=== PATIENT | female | born 1960 | race Caucasian/White ===

== ENCOUNTER 2018-09-25 13:24 | Emergency (ER) | payer OTHER ==
--- NOTE | 2018-09-25 13:36 | EDPHY ---
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 Patient reports that she hit her head approximately 2 times. Denies LOC/head injury/neck pain/dizziness/nausea/ vomiting/amnesia. She also fell on her side, arm, leg and twisted her ankle. She felt like she had maybe malaligned her lower back but went to the chiropractor yesterday and was adjusted and felt better. Patient reports that she feels like she does not have the same mental acuity, describes mental fogginess, delayed in cognition and responses. No prior history of concussions. Patient also complains of some neck pain but denies radiation. Not on blood thinners. Modifying Factors: None Comment: ROS: A comprehensive 10 system review of systems is otherwise negative aside from elements mentioned in the history of present illness. MEDICAL/SURGICAL/SOCIAL HISTORY: Medical history: hypothyroidism, cervical CA with hysterectomy (2008) Surgical history: Denies Social history: Heavy smoker. Employed. CONSTITUTIONAL: Well-developed, well-nourished, middle-aged white female, awake and alert, no obvious distress HEENT: Atraumatic and normocephalic, PERRL, EOMI. no globe entrapment, no raccoon eyes. no Doran signs.Tympanic membranes clear. No tympanic membrane rupture. Nares patent; no septal hematoma. Oropharynx clear, no exudate and moist pink mucosa. No malocclusion. no dental trauma. Airway patent. No lymphadenopathy. NECK: supple, mild midline tenderness, flexion 45 degrees, extension 45 degrees , right and left lateral flexion 45 degrees. No meningismus. Cardiovascular: Normal S1/S2, regular rate, regular rhythm, without murmur rub or gallop. PULMONARY/CHEST: Symmetrical and nontender. no crepitus. Clear to auscultation bilaterally. Good air movement. No accessory muscle usage. ABDOMEN: Soft, nondistended, nontender, no ecchymosis, no rebound, no guarding , no peritoneal signs, no masses or organomegaly. No CVAT. PELVIC: no pain with rocking; bilateral hips flexion 125 degrees, extension 30 degrees, with no pain internal rotation and no pain external rotation. BACK: No midline tenderness, no paraspinous spasm, deep tendon reflexes 2/2, no pain with straight leg raise EXTREMITIES: 2/2 pulses, no deformities, no clubbing, no cyanosis or edema. NEUROLOGICAL: no focal neuro deficits. GCS 15. Cranial nerves 2-12 grossly intact. Long and short-term memory within normal limits. Normal Romberg testing. No balance deficits noted. SKIN: Warm and dry, no erythema. no rash. Good capillary refill. Source: Patient Exam Limitations: No limitations - Personal History Current Tetanus Diphtheria and Acellular Pertussis (TDAP): Yes - Medical/Surgical History Hx Asthma: No Hx Chronic Respiratory Disease: No Hx Diabetes: No Hx Cardiac Disease: No Hx Renal Disease: No Hx Cirrhosis: No Hx Alcoholism: No Hx HIV/AIDS: No Hx Splenectomy or Spleen Trauma: No Other PMH: hypothyroid, cervical CA with hysterectomy (2008) - Social History Smoking Status: Heavy smoker Constitutional: Initial Vital Signs Temperature (C) 36.7 C 09/25/18 13:28 Heart Rate 62 09/25/18 13:28 Respiratory Rate 18 09/25/18 13:28 Blood Pressure 123/81 H 09/25/18 13:28 O2 Sat (%) 93 09/25/18 13:28 O2 Delivery Mode Room Air Allergies/Adverse Reactions: Sulfa (Sulfonamide Antibiotics) Allergy (Verified 09/25/18 13:27) Home Medications: Medication Instructions Recorded Levothyroxine 09/25/18 Ondansetron Odt [Zofran Odt 4 mg 4 mg PO Q4 PRN #12 tab 09/25/18 (*)] Medical Decision Making - Diagnostics Imaging Results: Imaging Impressions Cervical Spine CT 09/25/18 13:43 Impression: Negative noncontrast CT of the head with no intracranial posttraumatic sequela identified. CT Cervical Spine Without Contrast History: Trauma. Technique: Multislice helical CT through the cervical spine without contrast from the skull base to T1. Soft tissue and bone evaluation is performed. Sagittal and coronal reconstructions are obtained and reviewed. Dose reduction techniques were utilized. Findings: There is reversal of the normal cervical curvature, otherwise, bone alignment is normal. No fracture or dislocation is identified. The relationship between skull base and C1 is normal. Degenerative changes are seen involving the C1-C2 articulation anteriorly.. The odontoid process is normal. . The cervical thoracic junction is normal. Soft tissue window evaluation does not show evidence of epidural or prevertebral hematoma. Disk space loss and degenerative changes extend from C3-C4 to the C6-C7 level. Impression: 1. Negative for fracture. 2. Reversal of the cervical curvature may reflect muscle spasm. 3. Degenerative changes are noted. Results called and discussed with Georgiana ABBASI on 09/25/2018 at 15:18. Head CT 09/25/18 13:43 Impression: Negative noncontrast CT of the head with no intracranial posttraumatic sequela identified. CT Cervical Spine Without Contrast History: Trauma. Technique: Multislice helical CT through the cervical spine without contrast from the skull base to T1. Soft tissue and bone evaluation is performed. Sagittal and coronal reconstructions are obtained and reviewed. Dose reduction techniques were utilized. Findings: There is reversal of the normal cervical curvature, otherwise, bone alignment is normal. No fracture or dislocation is identified. The relationship between skull base and C1 is normal. Degenerative changes are seen involving the C1-C2 articulation anteriorly.. The odontoid process is normal. . The cervical thoracic junction is normal. Soft tissue window evaluation does not show evidence of epidural or prevertebral hematoma. Disk space loss and degenerative changes extend from C3-C4 to the C6-C7 level. Impression: 1. Negative for fracture. 2. Reversal of the cervical curvature may reflect muscle spasm. 3. Degenerative changes are noted. Results called and discussed with Georgiana ABBASI on 09/25/2018 at 15:18. ED Course/Re-evaluation: Vital signs reviewed and stable upon arrival. Based on [facility] protocol and [place] protocol; with dangerous mechanism with multiple times hitting her head; will obtain head CT imaging Based on [facility] protocol of midline tenderness; cervical CT imaging ordered Called by Radiologist, Dr. Del Drummond, who advised that head CT scan shows no acute intracranial process. Cervical CT spine shows degenerative changes but no yariel disc herniation, cord impingement. Does show straightening of the lordosis consistent with muscle spasm. Discuss concussion precautions and given Zofran. Patient politely declined any muscle relaxers. No signs of neurovascular compromise/tenting of skin/compartment syndrome/ extremities and joints examined above and below area of concern and are neurovascularly intact. This patient was seen under the supervision of my secondary supervising physician. I evaluated care for this patient independently. Discussed this patient with Dr. Valdovinos who did not see the patient. Differential Diagnosis: Head injury including but not limited to concussion, skull fracture, intraparenchymal contusion, subarachnoid, subdural and epidural hematoma. Departure - Departure Disposition: Home, Routine, Self-Care Clinical Impression: Degenerative disc disease, cervical Concussion Qualifiers: Encounter type: initial encounter Loss of consciousness presence/duration: without LOC Qualified Code(s): S06.0X0A - Concussion without loss of consciousness, initial encounter Closed head injury without loss of consciousness Qualifiers: Encounter type: initial encounter Qualified Code(s): S09.90XA - Unspecified injury of head, initial encounter Condition: Good Instructions: Concussion (ED), Degenerative Disc Disease (ED) Additional Instructions: You sustained a closed head injury and mild concussion and it is recommended that you observe concussion precautions. Please do not participate in any contact sports or moderate and strenuous activity until all symptoms have resolved or cleared by PCP/Concussion Clinic. Take Tylenol 650 mg every 4 hours and/or Ibuprofen 600 mg every 8 hours with food as needed for pain/headache. Take Zofran every 4-6 hours as needed for nausea, vomiting. Consume a minimum of 8-10 glasses of water or electrolyte fluid replacement drinks that include Gatorade, Powerade, Pedialyte. Please follow-up with primary care provider in 5-7 days. If symptoms last longer than 1 week, please follow-up with Dr. García in the concussion Clinic. Return to the ER immediately if you have progressive headaches, neurologic deficits, gait abnormality, visual disturbance, slurred speech, or any other symptom that concerns you. Referrals: Cecilia Vernon MD [Primary Care Provider] - As per Instructions Joanna García MD [Medical Doctor] - As per Instructions Prescriptions: Ondansetron Odt [Zofran Odt 4 mg (*)] 4 mg PO Q4 PRN #12 tab PRN Reason: Nausea/Vomiting, Use 1st
[2018-09-25 15:30] VITALS: BP 128/79
== END 2018-09-25 15:42 | disposition home or self-care (01) ==
DX: S06.0X0A Concussion without loss of consciousness, initial encounter (principal); M50.31 Other cervical disc degeneration, high cervical region; E03.9 Hypothyroidism, unspecified; W00.0XXA Fall on same level due to ice and snow, initial encounter; Y92.480 Sidewalk as the place of occurrence of the external cause; Y93.K1 Activity, walking an animal